=== PATIENT | female | born 2000 | race Caucasian/White ===

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

== ENCOUNTER 2020-04-11 16:26 | Emergency (ER) | payer BC ==
[~2020-04-11] VITALS: Ht 168 cm; Wt 52.0 kg
--- OUTSIDE RECORDS SUMMARY | 2020-04-11 16:31 | XMS REPORT | Continuity of Care Document ---
Author Organization Unknown Address Unknown Phone Unavailable Allergies Active Description Code Type Severity Reaction Onset Reported/Identified Relationship to Patient Clinical Status Yes No Known Allergies NKMA N/A N/A 01/24/2016 Yes No Known Drug Allergies [id number] Drug Allergy Unknown N/A 08/03/2018 Medications There is no data. Problems Date Dx Coded Attending Type Code Diagnosis Diagnosed By 10/23/2012 Julio RIVAS, Golden Unger 345 .90 EPILEPSY UNSPEC W/O MENTION INTRACTABLE EPILEPSY 10/23/2012 Julio RIVAS, Golden Unger 348 .1 ANOXIC BRAIN DAMAGE 10/23/2012 Julio RIVAS, Golden Unger 427 .1 PAROX VENTRIC TACHYCARD 10/23/2012 Golden Kim MD 427 .41 VENTRICULAR FIBRILLATION 10/23/2012 Golden Kim MD 427 .5 CARDIAC ARREST 10/23/2012 Golden Kim MD 427 .69 PREMATURE BEATS NEC 10/23/2012 Julio RIVAS, Golden Unger 746 .9 PORSHA HEART ANOMALY NOS 10/23/2012 Julio RIVAS, Golden Unger 794 .31 ABNORM ELECTROCARDIOGRAM 01/26/2016 Cruz Patrick Final E83.42 Hypomagnesemia 01/26/2016 Cruz Patrick Final F32 .9 Major depressive disorder, single episode, unspecified 01/26/2016 Cruz Patrick Final T14.91 Suicide attempt 01/26/2016 Cruz Patrick Final T44.7X2A Poisoning by beta-adrenoreceptor antagon ists, intentional self-harm, initia 01/26/2016 Cruz Patrick Final Y92.[address] in unspecified non-ins titutional (private) residence as t 01/26/2016 Cruz Patrick Final Z95.810 Presence of automatic (implantable) cardiac defibrilla tor 04/21/2016 W H52.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 2 ACIDOSIS 08/05/2018 CARLINE ARIZA MD Ot F10.988 ALCOHOL USE, UNSPECIFIED WITH OTHER ALCO 08/05/2018 CARLINE ARIZA MD Ot F32. 9 MAJOR DEPRESSIVE DISORDER, SINGLE EPISOD 08/05/2018 CARLINE ARIZA MD Ot F41. 9 ANXIETY DISORDER, UNSPECIFIED 08/05/2018 CARLINE ARIZA MD Ot F63. 9 IMPULSE DISORDER, UNSPECIFIED 08/05/2018 CARLINE ARIZA MD Ot I45. 10 UNSPECIFIED RIGHT BUNDLE-BRANCH BLOCK 08/05/2018 CARLINE ARIZA MD Ot I47. 2 VENTRICULAR TACHYCARDIA 08/05/2018 CARLINE ARIZA MD Ot I49. 8 OTHER SPECIFIED CARDIAC ARRHYTHMIAS 08/05/2018 CARLINE ARIZA MD Ot R11. 2 NAUSEA WITH VOMITING, UNSPECIFIED 08/05/2018 CARLINE ARIZA MD Ot T46.2X2A POISONING BY OTH ANTIDYSRHYTHMIC DRUGS, 08/05/2018 CARLINE ARIZA MD Ot Z91. 5 PERSONAL HISTORY OF SELF-HARM 08/05/2018 CARLINE ARIZA MD Ot Z95.810 PRESENCE OF AUTOMATIC (IMPLANTABLE) CARD 05/16/2019 W H52.13 Manuel lois, bilateral 05/16/2019 W H52.13 Manuel lois, bilateral Procedures Code Description Performed By Per formed On 38.91 BALDEV RIAL CATHETERIZATION Julio RIVAS, Golden Horner 10/23/2012 38.93 VENO US CATHETERIZATION NEC Julio RIVAS, Golden Horner 10/23/2012 96.71 CONT INUOUS INVASIVE MECHANICAL VENTILATION <96 CON Julio RIVAS, Golden Horner 10/23/2012 99.81 HYPO GENESIS Kim MD, Golden Horner 10/23/2012 15198 EYE EXAM T TREATMENT 04/21/2016 07130 REFR ACTION 04/21/2016 V2520 Cont act lens hydrophilic 05/06/2016 89438 EYE EXAM T TREATMENT 06/01/2017 65915 REFR ACTION 06/01/2017 58299 Cont act Lens Fittting 06/01/2017 V2520 Cont act lens hydrophilic 06/01/2017 69920 EYE EXAM ESTABLISHED PAT 05/31/2018 41709 REFR ACTION 05/31/2018 62592 Cont act Lens Fittting 05/31/2018 V2520 Cont act lens hydrophilic 12/26/2018 62693 EYE EXAM ESTABLISHED PAT 05/16/2019 V2520 Cont act lens hydrophilic 05/29/2019 Results Test Result Range CALCIUM IONIZED - 10/23/12 18:45 CALCIUM IONIZED 4.3 mg/dL 4.5-5.3 LACTIC ACID - 10/23/12 18:45 LACTIC ACID 6.1 mmol/L 0.5-2.2 CBC - 10/23/12 18:45 MEAN CELL HGB 27.9 pg 27.0-33.0 MEAN CELL HGB CONCENTRATION 33.4 g/dL 32 .0-37.0 MEAN CELL VOLUME 83.4 fl 78.0-92.0 RED BLOOD CELL 4.70 m/cumm 4.00-6.00 RED CELL DISTRIBUTION WIDTH 12.3 % 11 .0-15.6 WHITE BLOOD CELL 37.1 k/cumm 5.0-13.0 HEMOGLOBIN 13.1 gm/dL 12.0-15.0 HEMATOCRIT 39.2 % 36.0-46.0 PLATELET COUNT 522 k/cumm 150-400 VENOUS BLOOD GAS - 10/23/12 18:45 VBG BASE EXCESS -5.7 mEq/L -3.0-3.0 VBG BICARBONATE 18.8 meq/L 21-30 VBG PCO2 34 mm Hg 41-51 VBG PH 7.36 7.33-7.43 VBG PO2 70 mm Hg 35-40 VBG O2 SATURATION 93 % 65-75 METABOLIC PANEL, COMPREHN - 10/23/12 18: 45 POTASSIUM 2.3 mmol/L 3.5-5.3 ANION GAP 17 [...] mg/dL 0.0-1.0 ALKALINE PHOSPHATASE TOTAL 207 Units/L 9 4-657 PHOSPHORUS - 10/23/12 18:45 PHOSPHORUS 2.2 mg/dL 2.5-4.9 MAGNESIUM - 10/23/12 18:45 MAGNESIUM 2.0 mg/dL 1.8-2.4 B-TYPE NATRIURETIC PEPTIDE - 10/23/12 18 :45 B-TYPE NATRIURETIC PEPTIDE 4 pg/mL < 1 00 CREATINE KINASE (CK/CPK) - 10/23/12 19:3 0 CREATINE KINASE (CK/CPK) 513 Units/L < 1 93 CK MB - 10/23/12 19:30 CK MB [...] 108 mmol/L 98-110 CARBON DIOXIDE 23 mmol/L 21-32 PHOSPHORUS - 10/23/12 23:50 PHOSPHORUS 3.3 mg/dL [...] 09:02 Flecainide (Tambocor(TM)), S 0.25 ug/mL 0.20-1.00 CMP14+CBC/D/Plt+TSH - 04/14/17 14:02 WBC 8.5 x10E3/uL 3.4-10.8 RBC 5.04 x10E6/uL 3.77-5.28 Hemoglobin 14.1 g/dL 11.1-15.9 Hematocrit 43.9 % 34.0-46.6 MCV 87 fL 79-97 MCH 28.0 pg 26.6-33.0 MCHC 32.1 g/dL 31.5-35.7 RDW 13.9 % 12.3-15.4 Platelets 341 x10E3/uL 150-379 Neutrophils 77 % Lymphs 16 % Monocytes 6 % Eos 1 % Basos 0 % Neutrophils (Absolute) 6.4 x10E3/uL 1.4- 7.0 Lymphs (Absolute) 1.4 x10E3/uL 0.7-3.1 Monocytes(Absolute) 0.5 x10E3/uL 0.1-0.9 Eos (Absolute) 0.1 x10E3/uL 0.0-0.4 Baso (Absolute) 0.0 x10E3/uL 0.0-0.3 Immature Granulocytes 0 % Immature Grans (Abs) 0.0 x10E3/uL 0.0-0. 1 TSH 0.717 uIU/mL 0.450-4.500 Glucose, Serum 78 mg/dL 65-99 BUN 8 mg/dL 5-18 Creatinine, Serum 0.78 mg/dL 0.57-1.00 eGFR If NonAfricn Am TNP mL/min/1.73 eGFR If Africn Am TNP mL/min/1.73 BUN/Creatinine Ratio 10-22 Sodium, Serum 142 mmol/L 134-144 Potassium, Serum 4.4 mmol/L 3.5-5.2 Chloride, Serum 100 mmol/L 96-106 Carbon Dioxide, Total 24 mmol/L 18-29 Calcium, Serum 9.5 mg/dL 8.9-10.4 Protein, Total, Serum 7.2 g/dL 6.0-8.5 Albumin, Serum 4.4 g/dL 3.5-5.5 Globulin, Total 2.8 g/dL 1.5-4.5 A/G Ratio 1.6 1.2-2.2 Bilirubin, Total <0.2 mg/dL 0.0-1.2 Alkaline Phosphatase, S 104 IU/L 45-101 AST (SGOT) 21 IU/L 0-40 ALT (SGPT) 17 IU/L 0-24 Vitamin D, 25-Hydroxy - 04/14/17 14:02 Vitamin D, 25-Hydroxy 40.1 ng/mL 30.0-10 0.0 Vitamin B12 - 04/14/17 14:02 Vitamin B12 422 pg/mL 211-946 Flecainide (Tambocor(TM)), S - 04/14/17 14:04 Flecainide (Tambocor(TM)), S 0.21 ug/mL 0.20-1.00 Complete blood count (CBC) with automate d white blood cell (WBC) differential - 08/03/18 12:02 Blood leukocytes automated count (number/volume) 9.4 10*3/uL 4.3-11.0 Blood erythrocytes automated count (number/volume) 4.39 10*6/uL 4.35-5.85 Venous blood hemoglobin measurement (mass/volume) 12.6 g/dL 11.5-16.0 Blood hematocrit (volume fraction) 37 % 35-52 Automated erythrocyte mean corpuscular volume 85 [ foz_us] 80-99 Automated erythrocyte mean corpuscular h emoglobin (mass per erythrocyte) 29 pg 25-34 Automated erythrocyte mean corpuscular h emoglobin concentration measurement (mass/volume) 34 g/dL 32-36 Automated erythrocyte distribution width ratio 14. 1 % 10.0- 14.5 Automated blood platelet count (count/volume) 279 10*3/uL 130-400 Automated blood platelet mean volume measurement 11.0 [foz_us] 7.4-10.4 Automated blood neutrophils/100 leukocytes 85 % 42-75 Automated blood lymphocytes/100 leukocytes 9 % 12-44 Blood monocytes/100 leukocytes 5 % 0-12 Automated blood eosinophils/100 leukocytes 0 % 0-10 Automated blood basophils/100 leukocytes 0 % 0-10 Blood neutrophils automated count (number/volume) 8.1 10*3 1.8-7.8 Blood lymphocytes automated count (number/volume) 0.9 10*3 1.0-4.0 Blood monocytes automated count (number/volume) 0. 5 10*3 0.0-1.0 Automated eosinophil count 0.0 10*3/uL 0 .0-0.3 Automated blood basophil count (count/volume) 0.0 10*3/uL 0.0-0.1 Serum or plasma choriogonadotropin (preg aurea test) detection - 08/03/18 12:02 Serum or plasma choriogonadotropin ( test) de tection NEGATIVE NEGATIVE Comprehensive metabolic panel - 08/03/18 12:02 Serum or plasma sodium measurement (moles/volume) 140 mmol/L 135-145 Serum or plasma potassium measurement (moles/volume) 3.9 mmol/L 3.6-5.0 Serum or plasma chloride measurement (moles/volume) 107 mmol/L 98-107 Carbon dioxide 20 mmol/L 21-32 Serum or plasma anion gap determination (moles/volume) 13 mmol/L 5-14 Serum or plasma urea nitrogen measurement (mass/volume ) 10 mg/dL 7-18 Serum or plasma creatinine measurement (mass/volume) 0.84 mg/dL 0.60-1.30 Serum or plasma urea nitrogen/creatinine mass ratio 12 NRG Serum or plasma creatinine measurement w ith calculation of estimated glomerular filtration rate > NRG Serum or plasma glucose measurement (mass/volume) 114 mg/dL 70-105 Serum or plasma calcium measurement (mass/volume) 9.2 mg/dL 8.5-10.1 Serum or plasma total bilirubin measurement (mass/volu me) 0.4 mg/dL 0.1-1.0 Serum or plasma alkaline phosphatase tutu surement (enzymatic activity/volume) 118 U/L 40-136 Serum or plasma aspartate aminotransfera se measurement (enzymatic activity/volume) 17 U/L 5-34 Serum or plasma alanine aminotransferase measurement (enzymatic activity/volume) 17 U/L 0-55 Serum or plasma protein measurement (mass/volume) 6.9 g/dL 6.4-8.2 Serum or plasma albumin measurement (mass/volume) 4.2 g/dL 3.2-4.5 CALCIUM CORRECTED 9.0 mg/dL 8.5-10.1 Lipase - 08/03/18 12:02 Lipase 11 U/L 8-78 Serum or plasma salicylates measurement (mass/volume) - 08/03/18 12:02 Serum or plasma salicylates measurement (mass/volume) < mg/dL 5.0-20.0 Serum or plasma acetaminophen measuremen t (mass/volume) - 08/03/18 12:02 Serum or plasma acetaminophen measurement (mass/volume ) < ug/mL 10-30 Serum or plasma ethanol measurement (mas s/volume) - 08/03/18 12:02 Serum or plasma ethanol measurement (mass/volume) < mg/dL <10 Magnesium - 08/03/18 12:02 Magnesium 1.9 mg/dL 1.8-2.4 Methicillin resistant Staphylococcus aur eus (MRSA) screening culture - 08/03/18 16:30 Methicillin resistant Staphylococcus aureus (MRSA) scr eening culture NEG NRG Complete blood count (CBC) with automate d white blood cell (WBC) differential - 08/04/18 03:30 Blood leukocytes automated count (number/volume) 8.9 10*3/uL 4.3-11.0 Blood erythrocytes automated count (number/volume) 4.40 10*6/uL 4.35-5.85 Venous blood hemoglobin measurement (mass/volume) 12.1 g/dL 11.5-16.0 Blood hematocrit (volume fraction) 38 % 35-52 Automated erythrocyte mean corpuscular volume 86 [ foz_us] 80-99 Automated erythrocyte mean corpuscular h emoglobin (mass per erythrocyte) 28 pg 25-34 Automated erythrocyte mean corpuscular h emoglobin concentration measurement (mass/volume) 32 g/dL 32-36 Automated erythrocyte distribution width ratio 14. 6 % 10.0- 14.5 Automated blood platelet count (count/volume) 277 10*3/uL 130-400 Automated blood platelet mean volume measurement 11.2 [foz_us] 7.4-10.4 Automated blood neutrophils/100 leukocytes 60 % 42-75 Automated blood lymphocytes/100 leukocytes 27 % 12-44 Blood monocytes/100 leukocytes 12 % 0-12 Automated blood eosinophils/100 leukocytes 1 % 0-10 Automated blood basophils/100 leukocytes 0 % 0-10 Blood neutrophils automated count (number/volume) 5.4 10*3 1.8-7.8 Blood lymphocytes automated count (number/volume) 2.4 10*3 1.0-4.0 Blood monocytes automated count (number/volume) 1. 0 10*3 0.0-1.0 Automated eosinophil count 0.1 10*3/uL 0 .0-0.3 Automated blood basophil count (count/volume) 0.0 10*3/uL 0.0-0.1 Whole blood basic metabolic panel - 07/17 0 03:30 Serum or plasma sodium measurement (moles/volume) 140 mmol/L 135-145 Serum or plasma potassium measurement (moles/volume) 4.1 mmol/L 3.6-5.0 Serum or plasma chloride measurement (moles/volume) 111 mmol/L 98-107 Carbon dioxide 21 mmol/L 21-32 Serum or plasma anion gap determination (moles/volume) 8 mmol/L 5-14 Serum or plasma urea nitrogen measurement (mass/volume ) 5 mg/dL 7-18 Serum or plasma creatinine measurement (mass/volume) 0.77 mg/dL 0.60-1.30 Serum or plasma urea nitrogen/creatinine mass ratio 6 NRG Serum or plasma creatinine measurement w ith calculation of estimated glomerular filtration rate > NRG Serum or plasma glucose measurement (mass/volume) 105 mg/dL 70-105 Serum or plasma calcium measurement (mass/volume) 8.7 mg/dL 8.5-10.1 Serum or plasma phosphate measurement (m ass/volume) - 08/04/18 03:30 Serum or plasma phosphate measurement (mass/volume) 3.0 mg/dL 2.3-4.7 Magnesium - 08/04/18 03:30 Magnesium 2.5 mg/dL 1.8-2.4 Complete blood count (CBC) with automate d white blood cell (WBC) differential - 08/05/18 03:02 Blood leukocytes automated count (number/volume) 8.1 10*3/uL 4.3-11.0 Blood erythrocytes automated count (number/volume) 4.65 10*6/uL 4.35-5.85 Venous blood hemoglobin measurement (mass/volume) 13.1 g/dL 11.5-16.0 Blood hematocrit (volume fraction) 41 % 35-52 Automated erythrocyte mean corpuscular volume 88 [ foz_us] 80-99 Automated erythrocyte mean corpuscular h emoglobin (mass per erythrocyte) 28 pg 25-34 Automated erythrocyte mean corpuscular h emoglobin concentration measurement (mass/volume) 32 g/dL 32-36 Automated erythrocyte distribution width ratio 14. 7 % 10.0- 14.5 Automated blood platelet count (count/volume) 260 10*3/uL 130-400 Automated blood platelet mean volume measurement 10.9 [foz_us] 7.4-10.4 Automated blood neutrophils/100 leukocytes 54 % 42-75 Automated blood lymphocytes/100 leukocytes 32 % 12-44 Blood monocytes/100 leukocytes 12 % 0-12 Automated blood eosinophils/100 leukocytes 3 % 0-10 Automated blood basophils/100 leukocytes 1 % 0-10 Blood neutrophils automated count (number/volume) 4.4 10*3 1.8-7.8 Blood lymphocytes automated count (number/volume) 2.6 10*3 1.0-4.0 Blood monocytes automated count (number/volume) 0. 9 10*3 0.0-1.0 Automated eosinophil count 0.2 10*3/uL 0 .0-0.3 Automated blood basophil count (count/volume) 0.1 10*3/uL 0.0-0.1 Whole blood basic metabolic panel - 07/17 11/02 03:02 Serum or plasma sodium measurement (moles/volume) 141 mmol/L 135-145 Serum or plasma potassium measurement (moles/volume) 3.9 mmol/L 3.6-5.0 Serum or plasma chloride measurement (moles/volume) 108 mmol/L 98-107 Carbon dioxide 21 mmol/L 21-32 Serum or plasma anion gap determination (moles/volume) 12 mmol/L 5-14 Serum or plasma urea nitrogen measurement (mass/volume ) 8 mg/dL 7-18 Serum or plasma creatinine measurement (mass/volume) 0.80 mg/dL 0.60-1.30 Serum or plasma urea nitrogen/creatinine mass ratio 10 NRG Serum or plasma creatinine measurement w ith calculation of estimated glomerular filtration rate > NRG Serum or plasma glucose measurement (mass/volume) 89 mg/dL 70-105 Serum or plasma calcium measurement (mass/volume) 9.3 mg/dL 8.5-10.1 Serum or plasma phosphate measurement (m ass/volume) - 08/05/18 03:02 Serum or plasma phosphate measurement (mass/volume) 4.0 mg/dL 2.3-4.7 Magnesium - 08/05/18 03:02 Magnesium 1.9 mg/dL 1.8-2.4 CBC With Differential/Platelet - 9 00:00 WBC 7.9 k/cumm 5.0-10.0 RBC 4.56 m/cumm 4.00-6.00 Hemoglobin 12.6 gm/dL 12.0-16.0 Hematocrit 39.9 % 37.0-47.0 MCV 87.5 fl 80.0-100.0 MCH 27.6 pg 27.0-33.0 MCHC 31.6 g/dL 32.0-37.0 RDW 12.7 % 11.0-15.6 Platelets 340 k/cumm 150-400 Neutrophils 55.2 % 50-75 Lymphs 33.1 % 20-30 Monocytes 8.8 % 4-6 Eos 2.2 % 2-4 Basos 0.4 % 0-1 Neutrophils (Absolute) 4.4 k/cumm 2.0-9. 0 Lymphs (Absolute) 2.6 k/cumm 1.0-4.0 Monocytes(Absolute) 0.7 k/cumm 0.1-1.0 Eos (Absolute) 0.2 k/cumm 0.1-0.5 Baso (Absolute) 0.0 k/cumm 0.0-0.2 Immature Granulocytes 0.3 % 0.0-0.6 Immature Grans (Abs) 0.02 k/cumm 0.00-0. 09 NRBC 0.0 /100 WBC 0.0-0.0 Comp. Metabolic Panel (14) - 05/15/19 00 :00 Glucose, Serum 90 mg/dL 70-99 BUN 7 mg/dL 7-20 Creatinine, Serum 0.70 mg/dL 0.60-1.00 eGFR If NonAfricn Am 125 mL/min > 59 eGFR If Africn Am 145 mL/min > 59 BUN/Creatinine Ratio 10 9-20 Sodium, Serum 143 mmol/L 135-148 Potassium, Serum 4.0 mmol/L 3.5-5.3 Chloride, Serum 108 mmol/L 98-110 Carbon Dioxide, Total 27 mmol/L 21-32 Calcium, Serum 8.9 mg/dL 8.5-10.1 Protein, Total, Serum 6.7 gm/dL 6.4-8.2 Albumin, Serum 3.7 gm/dL 3.4-5.0 Bilirubin, Total 0.3 mg/dL 0.0-1.0 Alkaline Phosphatase, S 136 IU/L 45-117 AST (SGOT) 17 Units/L 10-37 ALT (SGPT) 18 Units/L < 66 Radiology Report from [facility] on 2012 12:05:00 DIAGNOSTIC REGINA GING REPORT [facility] - [address] [place] [address] PHONE #: [phone] FAX #: [phone] Name: SHAILA DANIEL Loc: W.1505 1 Radiology No: : 2000 Age: 12 Sex: F Status: DIS IN Unit No: [id number] Phys: Golden Torres MD Acct: [id number] Reason For Exam: LINE PLACEMENT Exam Date: 10/24/2012 EXAMS: CPT CODE: [id number] CHEST AP/PA ONLY [id number] REASON FOR EXAM: LINE PLACEMENT DATE: 10/24/2012 1:18 AM COMPARISON: 10/23/2012 at 8:24 PM FINDINGS: Single frontal supine view of the chest was obtained. The endotracheal tube is stable from comparison exam. The enteric tube is stable from the prior exam and remains looped in the stomach. There has been interval placement of a left sided subclavian catheter with the tip overlying the region of the low SVC. The lungs are well aerated and clear. No focal consolidation, large pleural effusion or pneumothorax is seen. The cardiothymic silhouette and pulmonary vasculature are within normal limits. No acute fracture or soft tissue abnormality is detected. IMPRESSION: 1. No acute cardiopulmonary abnormality. 2. Interval placement of left-sided subclavian catheter as described above. 3. Stable endotracheal and enteric tube. Note is made that the enteric tube remains looped within the stomach. I have personally reviewed these images and approved or corrected the resident physician's interpretation. at 1200 RESIDENT: DIA RENTERIA MD Reported and signed by: HERBIE MASON MD CC: Technologist: ALEXANDRU COOLEY Transcribed Date/Time: 10/24/2012 (1200)Activities Counselor: SHAWNEE Printed Date/Time: 10/24/2012 (2100) BATCH NO: N/A PAGE 1 Signed Report Radiology Report from [facility] on 2012 12:05:00 DIAGNOSTIC REGINA GING REPORT [facility] - [address] [place] [address] PHONE #: [phone] FAX #: [phone] Name: SHAILA DANIEL Loc: W.1505 1 Radiology No: : 2000 Age: 12 Sex: F Status: DIS IN Unit No: [id number] Phys: Golden Torres MD Acct: [id number] Reason For Exam: RESP DISTRESS Exam Date: 10/23/2012 EXAMS: CPT CODE: [id number] CHEST AP/PA ONLY 75781 REASON FOR EXAM: RESP DISTRESS, POST CODE BLUE DATE: 10/23/2012 8:20 PM COMPARISON: None FINDINGS: Single frontal supine view of the chest was obtained. An endotracheal tube is identified with the tip inferior to the thoracic inlet and superior to the ryan. An enteric tube is identified that appears looped in the stomach with the tip overlying the region of the stomach. The lungs are well aerated and clear. No focal consolidation, large pleural effusion or pneumothorax is seen. The cardiothymic silhouette and pulmonary vasculature are within normal limits. No acute fracture or soft tissue abnormality is detected. IMPRESSION: 1. No acute cardiopulmonary abnormality. 2. Placement of endotracheal tube and enteric tube as described above. I have personally reviewed these images and approved or corrected the resident physician's interpretation. at 1200 RESIDENT: DIA RENTERIA MD Reported and signed by: HERBIE MASON, MD CC: Technologist: ZAK MEZA; SANDEEP MAGANA Transcribed Date/Time: 10/24/2012 (1200)Activities Counselor: SHAWNEE Printed Date/Time: 10/24/2012 (5435) BATCH NO: N/A PAGE 1 Signed Report Encounters ACCT No. Visit Date/Time Discharge Status Pt. Type Provider Facility Loc./Unit Complaint [id number] 01/24/2016 05:01:00 016 14:00:00 ACT Outpatient Cruz Patrick [facility] by b eta ming overdose [id number] 04/18/2017 05:06:00 Document Registration [id number] 04/15/2017 08:36:00 Document Registration [id number] 08/03/2018 15:31:00 018 11:40:00 DIS Inpatient TO RIVAS, CARLINE Merrill Via [facility] 4TH OVERDOSE,SUICIDE ATTEMP T,BRAGADA SYNDROME [id number] 05/15/2019 18:06:00 Document Registration [id number] 10/23/2012 18:00:00 013 03:15:00 DIS Inpatient Julio RIVAS, [facility] W.PI [id number] 05/29/2019 00:00:00 Document Registration [id number] 05/16/2019 15:00:00 Document Registration [id number] 12/26/2018 00:00:00 Document Registration [id number] 05/31/2018 10:15:00 Document Registration [id number] 06/01/2017 15:15:00 Document Registration [id number] 06/01/2017 00:00:00 Document Registration [id number] 05/06/2016 00:00:00 Document Registration [id number] 04/21/2016 15:30:00 Document Registration [id number] 08/27/2016 07:06:00 Document Registration
[2020-04-11 16:46] LABS: BILIRUBIN,URINE NEGATIVE (NEGATIVE); CLARITY,URINE SL CLOUDY; COLOR,URINE YELLOW; GLUCOSE, URINE (UA) NEGATIVE (NEGATIVE); KETONES,URINE NEGATIVE (NEGATIVE); LEUKOCYTE ESTERASE ,URINE 2+ (NEGATIVE); NITRITE,URINE NEGATIVE (NEGATIVE); PH,URINE 6.5 (5-9); PROTEIN,URINE TRACE (NEGATIVE)
--- NOTE | 2020-04-11 16:50 | ED GU-Female ---
General Chief Complaint: - Urinary Stated Complaint: FREQUENT URINATION Nursing Triage Note: Patient reports pain in 'groin' and urinary frequency for a few days. States was sexually active the night before symptoms started Nursing Sepsis Screen: No Definite Risk Source: patient Exam Limitations: no limitations (JOSEFINA HENNING MED STUDENT) History of Present Illness Date Seen by Provider: Apr 11, 2020 Time Seen by Provider: 16:35 Initial Comments Ms. Velasquez is a 19 year old female who presents to the emergency department with complaints of urinary frequency for 3 days. Associated symptoms include urinary hesitancy, suprapubic pain after voiding, mid lumbar back pain, and an increase in vaginal discharge that she states is cloudy and "smells salty". She denies dysuria, dyspareunia, fever, abdominal pain, vaginal itching/irritation, and nausea/vomiting. She is currently sexually active and had intercourse 1 day prior to the start of symptoms. She states this is not a new partner. LMP was approximately 1 week ago. 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 Medications include oral contraceptives. Severity/Quality: moderate Location: suprapubic Radiation: none Sexual [place] History: single partner (one day prior to symptoms) Associated Symptoms: No abdominal pain, No dysuria, No fever/chills, No nausea/vomiting; urinary frequency (JOSEFINA HENNING MED STUDENT) Allergies and Home Medications Allergies Coded Allergies: No Known Drug Allergies (Unverified , 08/03/18) Home Medications No Active Prescriptions or Reported Meds Patient Home Medication List Home Medication List Reviewed: Yes (JOSEFINA HENNING MED STUDENT) Review of Systems Review of Systems Constitutional: no symptoms reported EENTM: no symptoms reported Respiratory: no symptoms reported Cardiovascular: no symptoms reported Gastrointestinal: abdominal pain (suprapubic post void) Genitourinary: discharge, dysuria, frequency; denies incontinence Musculoskeletal: back pain (mild low mid back) Psychiatric/Neurological: No Symptoms Reported (JOSEFINA HENNING MED STUDENT) Past Lcvenrx-Eytnpb-Zyjncy Hx Patient Social History Alcohol Use: Occasionally Uses Number of Drinks Today: AA Recreational Drug Use: No Smoking Status: Never a Smoker Recent Foreign Travel: No Contact w/Someone Who Travel: No Recent Infectious Disease Expo: No Recent Hopitalizations: No (JOSEFINA HENNING MED STUDENT) Immunizations Up To Date Tetanus Booster (TDap): Less than 5yrs PED Vaccines UTD: Yes (JOSEFINA HENNING,SULEMAN PIMENTEL) Seasonal Allergies Seasonal Allergies: No (JOSEFINA HENNING MED STUDENT) Past Medical History Surgeries: Yes Defibrillator, Orthopedic Respiratory: No Cardiac: Yes (CPVT) Congenital Heart Disease Neurological: No Reproductive Disorders: No Genitourinary: No Gastrointestinal: No Musculoskeletal: No Endocrine: No HEENT: No Cancer: No Psychosocial: Yes Anxiety, Depression Integumentary: No Blood Disorders: No (JOSEFINA HENNING MED STUDENT) Family Medical History Abdominal aortic aneurysm grandfather Physical Exam Vital Signs Vital Signs - First Documented 04/11/20 16:34 Temp 36.8 Pulse 103 Resp 18 B/P (MAP) 134/98 (110) Pulse Ox 98 (TIGRE MEADE MD) Vital Signs Capillary Refill : Less Than 3 Seconds (JOSEFINA HENNING,SULEMAN PIMENTEL) Height, Weight, BMI Height: 5'6.00" Weight: 120lbs. 3.0oz. [id number]; 18.00 BMI Method:Stated General Appearance: WD/WN, no apparent distress HEENT: PERRL/EOMI Cardiovascular: regular rate, rhythm, no murmur Respiratory: chest non-tender, lungs clear, normal breath sounds, no respiratory distress, no accessory muscle use Gastrointestinal: normal bowel sounds, non tender, soft, no organomegaly; No guarding, No rebound Neurologic/Psychiatric: alert, normal mood/affect, oriented x 3 Skin: normal color, warm/dry (JOSEFINA HENNING,SULEMAN STUDENT) Progress/Results/Core Measures Suspected Sepsis Recent Fever Within 48 Hours: No Infection Criteria Present: None New/Unexplained Altered Menta: No Sepsis Screen: No Definite Risk SIRS Temperature: Pulse: 103 Respiratory Rate: 18 Blood Pressure 134 /98 Mean: 110 (JOSEFINA HENNING,SULEMAN STUDENT) Results/Orders Lab Results Laboratory Tests Test 04/11/20 16:37 Range/Units Urine Color YELLOW Urine Clarity SL CLOUDY Urine pH 6.5 5-9 Urine Specific [place] 1.010 L 1.016-1.022 Urine Protein TRACE H NEGATIVE Urine Glucose (UA) NEGATIVE NEGATIVE Urine Ketones NEGATIVE NEGATIVE Urine Nitrite NEGATIVE NEGATIVE Urine Bilirubin NEGATIVE NEGATIVE Urine Urobilinogen 0.2 < = 1.0 MG/DL Urine Leukocyte Esterase 2+ H NEGATIVE Urine RBC (Auto) 1+ H NEGATIVE Urine RBC 2-5 H /HPF Urine WBC 50-100 H /HPF Urine Squamous Epithelial Cells 2-5 /HPF Urine Crystals NONE /LPF Urine Bacteria FEW H /HPF Urine Casts NONE /LPF Urine Mucus NEGATIVE /LPF Urine Culture Indicated YES (TIGRE MEADE MD) My Orders Orders - TIGRE MEADE MD Ceftriaxone For Im Use (Rocephin For Im (04/11/20 18:15) Lidocaine 1% Inj 20 Ml (Xylocaine 1% Inj (04/11/20 18:15) (TIGRE MEADE MD) Vital Signs/I&O 04/11/20 16:34 Temp 36.8 Pulse 103 Resp 18 B/P (MAP) 134/98 (110) Pulse Ox 98 (TIGRE MEADE MD) Vital Signs/I&O Capillary Refill : Less Than 3 Seconds (JOSEFINA HENNING,MED STUDENT) Blood Pressure Mean: 110 Departure Impression Primary Impression: Urinary tract infection Qualified Codes: N39.0 - Urinary tract infection, site not specified Disposition: HOME, SELF-CARE Condition: Improved Departure-Patient Inst. Decision time for Depature: 18:04 (TIGRE MEADE MD) Referrals: NO,LOCAL PHYSICIAN (PCP/Family) Primary Care Physician Patient Instructions: Urinary Tract Infection, Adult (DC) Add. Discharge Instructions: Drink plenty of clear liquids. Complete your antibiotic as prescribed. If your symptoms do not completely resolve after taking antibiotics, consider pursuing a pelvic exam for sexually transmitted infection screening with your primary care provider or your women's health provider. You may take Tylenol and/or ibuprofen for pain. You should follow-up with the [facility] on Monday afternoon or Monday to review urine culture results. Return to care if you have worsening symptoms despite treatment. All discharge instructions reviewed with patient and/or family. Voiced understanding. Scripts Cephalexin (Keflex) 500 Mg Capsule 500 MG PO TID, #20 CAP Prov: TIGRE MEADE MD 04/11/20 JOSEFINA HENNINGMED STUDENT Apr 11, 2020 16:50 TIGRE MEADE MD Apr 11, 2020 18:08
[2020-04-11 16:58] LABS: BACTERIA,URINE FEW /HPF; WBC,URINE 50-100 /HPF
[2020-04-11] MEDS ORDERED: CEPH-507 PO (18:10)
[2020-04-11] MEDS ORDERED: LIDOCAINE 1% INJ 20 ML 20 ML VIAL INJ ONE (18:15)
[2020-04-11] MEDS ORDERED: cefTRIAXone 1,000 MG/2.86 ml vial (IM ONLY) IM ONE (18:15)
[2020-04-11 18:30] VITALS: BP 134/98
== END 2020-04-11 18:29 | disposition home or self-care (01) ==
LOC: EDUNIT# 16:26 → ER 16:28
DX: N39.0 Urinary tract infection, site not specified (principal); I50.9 Heart failure, unspecified; Z95.810 Presence of automatic (implantable) cardiac defibrillator
CPT/HCPCS: 81000; 84703; 87077; 87088; 99282